=== PATIENT | female | born 1975 | race Caucasian/White ===

== ENCOUNTER 2017-05-15 09:46 | Outpatient (CLI) | payer OTHER ==
--- NOTE | 2017-05-15 11:26 | ULT ---
ULTRASOUND LEFT BREAST: Date: 05/15/17 HISTORY: A directed ultrasound of the upper mid left breast was performed to assess asymmetry noted on mammog allyson. The patient also complains of bilateral breast pain. Diagnostic mammogram was performed. FINDINGS: No sonographic abnormality is seen in the left breast. The left breast was evaluated from 11-1:00 wi th ultrasound. IMPRESSION: Ultrasound findings are BIRADS Category 1 - negative. POS: [facility]
--- NOTE | 2017-05-15 11:27 | MMO ---
BILATERAL DIAGNOSTIC MAMMOGRAMS: Date: 05/15/17 HISTORY: Diagnostic study is performed because of bilateral breast tenderness. This is a baseline study. This patient's mammogram was interpreted with the assistance of computer-aided detection. FINDINGS: There is a heterogeneously dense glandular pattern bilaterally. No focal mass or distortion. Mild pa renchymal asymmetry in the upper mid left breast is noted. Ultrasound of this region was performed a nd there is no sonographic abnormality seen. Recommend correlation with physical exam. If there are any areas of palpable concern, MRI could be p erformed in this patient with dense breasts. Otherwise, recommend routine follow-up. IMPRESSION: BIRADS 2: Benign Finding(s) POS: [facility]
--- OUTSIDE RECORDS SUMMARY | 2017-05-21 14:03 | XMS | Clinical Summary ---
:1975 Author Organization [facility] Address [address] [place] [address] Phone Care Team Providers Name Role Phone , Primary Care Provider Unavailable Allergies Active Allergy Reactions Severity Noted Date Comments Meperidine (Pf) Itching 01/13/2014 Current Medications Prescription Sig. Disp. Refills Start Date End Date Status LISINOPRIL-HYDROCHLOROTHI Take by mouth. Active AZIDE ORAL FLUoxetine (PROZAC) 20 MG Take 20 mg by mouth Active tablet daily. ALPRAZolam (XANAX) 0.25 Take 0.25 mg by Active MG tablet mouth every night as needed for Anxiety. Active Problems No known active problems Resolved Problems Problem Noted Date Resolved Date Adnexal mass 11/24/2013 01/29/2014 Menorrhagia 11/10/2013 01/29/2014 Dysmenorrhea 11/10/2013 01/29/2014 Dyspareunia, female 11/10/2013 03/02/2014 Cervical polyp 11/10/2013 01/29/2014 Overview: ICD9 DX [employer] Family History Medical History Relation Name Comments Diabetes Brother Heart disease Father Hypertension Father Diabetes Mother Heart disease Mother Hyperlipidemia Mother Stroke Mother Relation Name Status Comments Brother Father Mother Social History Tobacco Use Types Packs/Day Years Used Date Current Every Day Smoker 0.5 10 Smokeless Tobacco: Never Used Tobacco Cessation:Ready to Quit: No; Counseling Given: Yes Alcohol Use Drinks/Week oz/Week Comments Yes 5 Cans of beer 3.0 socially Sex Assigned at Date Recorded Not on file Last Filed Vital Signs Vital Sign Reading Time Taken Blood Pressure 122/80 03/02/2014 9:39 AM CDT Pulse 81 01/17/2014 11:14 AM CDT Temperature 36.9 C (98.4 F) 01/17/2014 11:14 AM CDT Respiratory Rate 18 01/17/2014 11:14 AM CDT Oxygen Saturation 100% 01/17/2014 11:14 AM CDT Inhaled Oxygen Concentration - - Weight 81.6 kg (180 lb) 03/02/2014 9:39 AM CDT Height 172.7 cm (5' 8") 03/02/2014 9:39 AM CDT Body Mass Index 27.37 03/02/2014 9:39 AM CDT Plan of Treatment Health Maintenance Due Date Last Done Comments INFLUENZA VACCINE 04/29/2017 Results Not on filefrom Last 3 Months
== END 2017-05-15 09:47 | disposition home or self-care (01) ==
LOC: MAMMO 09:46
PROVIDERS: ATTEND Family Medicine
DX: N64.4 Mastodynia (principal)
CPT/HCPCS: 77066; G0204

== ENCOUNTER 2019-03-19 12:59 | Outpatient (CLI) | payer BC ==
--- NOTE | 2019-03-19 14:24 | RAD ---
2 VIEWS CHEST: Date: 03/19/19 COMPARISON: 05/12/13. HISTORY: Cough. FINDINGS: There is no pneumothorax or pleural fluid. No focal consolidation or alveolar edema. Heart and medias tinal contours are unremarkable. IMPRESSION: No acute findings. POS: [facility]
== END 2019-03-19 13:00 | disposition home or self-care (01) ==
LOC: SCSRAD 12:59
PROVIDERS: ATTEND Family Medicine
DX: R05 Cough (principal); J02.9 Acute pharyngitis, unspecified; R19.7 Diarrhea, unspecified
CPT/HCPCS: 71046

== ENCOUNTER 2025-05-18 08:39 | Observation (INO) | payer BC ==
[2025-05-18 09:26] VITALS: BMI 23.8
[2025-05-18] MEDS: Enoxaparin 40 MG (0.4 mL) SYRINGE SC SCH (10:12)
[2025-05-18] MEDS: Acetaminophen 325 MG TAB PO PRN (11:34)
[2025-05-18] MEDS: Prochlorperazine 10 MG/2 ML VIAL SLOW IVP SCH (14:40)
[2025-05-18] MEDS: diphenhydrAMINE 25 MG CAP PO PRN (20:52)
[2025-05-19 05:54] LABS: #Basophils Less than 0.03 10x3/uL (0.0-0.2); #Eosinophils 0.03 10x3/uL (0.0-0.7); #Monocytes 0.36 10x3/uL (0.11-0.59); #Neutrophils 3.28 10x3/uL (1.40-6.50); %Basophils 0.2 % (0.0-1.0); %Eosinophils 0.5 % (0.0-10.0); %Lymphocytes 37.4 % (21.0-51.0); %Monocytes 6.1 % (0.0-10.0); %Neutrophils 55.5 % (42.0-75.0); Hematocrit 31.4 % (36.0-47.0); Hemoglobin 10.6 g/dL (12.0-16.0); Mean Corpuscular Hemoglobin 32.3 pg (27.0-31.0); Mean Corpuscular Volume 95.7 fL (78.0-98.0); Platelet Count 173 10x3/uL (130-400); Red Blood Cell (RBC) Count 3.28 mill/uL (4.20-5.40); White Blood Cell (WBC) Count 5.91 10x3/uL (4.8-10.8)
[2025-05-19 06:33] LABS: ALT (SGPT) 12 U/L (Less than 34); AST (SGOT) 19 U/L (11-34); Albumin 2.9 g/dL (3.1-4.5); Alkaline Phosphatase 43 U/L (40-110); Anion Gap 11 mmol/L (10-20); BUN (Urea Nitrogen) 22 mg/dL (7.0-18.7); Bilirubin, Total 0.3 mg/dL (0.3-1.2); Calc. Creatinine Clearance 78 mL/min (70-130); Calcium 8.6 mg/dL (7.8-10.44); Carbon Dioxide 24 mmol/L (22-29); Chloride 108 mmol/L (98-107); Globulin 2.4 g/dL (2.4-3.5); Glucose 93 mg/dL (70-105); Potassium 4.2 mmol/L (3.5-5.1); Sodium 139 mmol/L (136-145)
[2025-05-19] MEDS: Pantoprazole 40 MG DR.TAB PO SCH (08:17)
[2025-05-19 11:31] VITALS: BP 129/80; TEMP 97.7
[2025-05-20] MEDS ORDERED: FLU (Fluarix Triv) 25-26 (6MOS UP)/PF 45 MCG/0.5 ML Syringe IM ONE (09:00)
== END 2025-05-19 11:43 | disposition home or self-care (01) ==
LOC: INTOOBSV 08:39 → T4-B 08:39
PROVIDERS: ADMIT Family Medicine; ATTEND Family Medicine
DX: I95.9 Hypotension, unspecified (principal); M25.512 Pain in left shoulder; M25.511 Pain in right shoulder; N17.9 Acute kidney failure, unspecified; E86.1 Hypovolemia; E86.0 Dehydration; E87.1 Hypo-osmolality and hyponatremia; E83.42 Hypomagnesemia; E78.5 Hyperlipidemia, unspecified; I10 Essential (primary) hypertension; K21.9 Gastro-esophageal reflux disease without esophagitis; F41.1 Generalized anxiety disorder; F32.9 Major depressive disorder, single episode, unspecified; F17.210 Nicotine dependence, cigarettes, uncomplicated; Z88.5 Allergy status to narcotic agent; Z88.8 Allergy status to other drugs, medicaments and biological substances; Z79.899 Other long term (current) drug therapy
CPT/HCPCS: 36415; 80053; 85025; 96374; G0378; J0780; J7120